=== PATIENT | male | born 1960 | race African-American/Black ===

== ENCOUNTER 2019-02-12 12:42 | Inpatient (IN) | payer MEDICARE, MEDICAID ==
[~2019-02-12] VITALS: Ht 175.3 cm; Wt 80.7 kg
[~2019-02-12 12:42] MED LIST: ASPI-1393 PO; ATOR-2 PO; DIPH25CA46 PO; LISI40TA4 PO; METO-396 PO; TICA90TA PO; TIMO5DRO32 EACHEYE
[2019-02-12 13:59] LABS: BASOPHILS % 1.4 % (0.0-2.0); EOSINOPHILS % 3.3 % (0.0-5.0); HEMATOCRIT. 34.9 % (42.0-52.0); MEAN CORPUSCULAR HEMOGLOBIN 28.7 pg (28.0-32.0); MEAN CORPUSCULAR VOLUME 90.9 fL (80.0-94.0); MEAN PLATELET VOLUME 10.1 fl (7.4-10.4); NEUTROPHILS % 72.3 % (40.0-76.0); PLATELET 210 x1000/uL (130-400); RED BLOOD CELL COUNT 3.84 mill/uL (4.7-6.1); RED CELL DISTRIBUTION WIDTH 25.2 % (11.6-14.6)
[2019-02-12 14:11] LABS: PLATELET ESTIMATE NORMAL
[2019-02-12] MEDS ORDERED: CLONIDINE 0.1MG TABLET PO PRN (20:00)
[2019-02-12] MEDS ORDERED: ONDANSETRON HCL 4MG/2ML INJ IV PRN (20:00)
[2019-02-12] MEDS ORDERED: LORAZEPAM 0.5MG TABLET PO PRN (20:00)
[2019-02-12] MEDS ORDERED: HYDROCODONE/ACETAMINOPHEN 5/325MG TABLET PO PRN (20:00)
[2019-02-12] MEDS ORDERED: ACETAMINOPHEN 325MG TABLET PO PRN (20:00)
[2019-02-12] MEDS ORDERED: IPRATROPIUM/ALBUTEROL 0.5-3(2.5)MG/3ML NEB HHN PRN (20:00)
[2019-02-12 21:36] LABS: CHLORIDE 96 mEq/L (98-107)
[2019-02-12 21:57] LABS: ETHANOL BLOOD < 10 mg/dL
[2019-02-12] MEDS: DOCUSATE SODIUM 100MG CAPSULE PO PRN (23:53)
[2019-02-13] MEDS ORDERED: AMLO10TA80 PO (00:03)
[2019-02-13] MEDS ORDERED: ISON300T19 PO (00:03)
[2019-02-13] MEDS ORDERED: CALC667C MT (00:03)
[2019-02-13] MEDS ORDERED: MELO-106 PO (00:03)
[2019-02-13 01:28] VITALS: BP 105/63
[2019-02-13 08:00] VITALS: BP 115/73
[2019-02-13] MEDS: DOCUSATE SODIUM 100MG CAPSULE PO PRN (09:41)
[2019-02-13] MEDS ORDERED: DEXTROSE 50% WATER 50ML SYRINGE IV PRN (09:45)
[2019-02-13] MEDS ORDERED: TICAGRELOR 90 MG TABLET PO NR (10:30)
[2019-02-13 12:00] VITALS: BP 128/78
[2019-02-13] MEDS: LACTULOSE 20G/30ML UDC PO SCH ×2 (12:07→17:26)
[2019-02-13] MEDS: BLOOD SUGAR DIAGNOSTIC STRIP TEST SCH ×3 (12:26→21:49)
[2019-02-13] MEDS: INSULIN LISPRO 100 UNITS/ML SUBCUT SCH ×3 (12:27→21:48)
[2019-02-13 13:11] LABS: HEPATITIS B SURFACE ANTIGEN NEGATIVE
[2019-02-13 13:40] LABS: HEPATITIS A AB IGM NEGATIVE (NEGATIVE)
[2019-02-13 16:38] VITALS: BP 117/72
[2019-02-13 20:00] VITALS: BP 121/67
[2019-02-13 20:09] LABS: T4 FREE 0.96 ng/dL (0.76-1.46)
[2019-02-13 21:32] LABS: VITAMIN B12 SERUM 907 pg/mL (211-911)
[2019-02-13] MEDS: TICAGRELOR 90 MG TABLET PO SCH (21:48)
[2019-02-14] VITALS: BP 127/60
[2019-02-14 04:00] VITALS: BP 117/51
[2019-02-14 04:09] LABS: HIV SCREEN 4G Non Reactive (Non Reactive)
[2019-02-14] MEDS: BLOOD SUGAR DIAGNOSTIC STRIP TEST SCH ×4 (07:40→21:00)
[2019-02-14 08:00] VITALS: BP 114/69
[2019-02-14] MEDS: INSULIN LISPRO 100 UNITS/ML SUBCUT SCH ×4 (08:10→21:44)
[2019-02-14] MEDS: AMLODIPINE 10MG TABLET PO SCH (09:19)
[2019-02-14] MEDS: ASPIRIN 81MG EC TABLET PO SCH (09:19)
[2019-02-14] MEDS: LACTULOSE 20G/30ML UDC PO SCH ×3 (09:19→18:14)
[2019-02-14] MEDS: TICAGRELOR 90 MG TABLET PO SCH ×2 (09:19→21:44)
[2019-02-14] MEDS: INSULIN GLARGINE UD 100 UNITS/ML SYR SUBCUT SCH (10:00)
[2019-02-14 12:00] VITALS: BP 117/77
[2019-02-14 15:28] LABS: BASOPHILS % 0.4 % (0.0-2.0); EOSINOPHILS % 3.3 % (0.0-5.0); HEMATOCRIT. 30.5 % (42.0-52.0); HEMOGLOBIN. 9.5 g/dL (14.0-18.0); MEAN CORPUSCULAR HEMOGLOBIN 28.2 pg (28.0-32.0); MEAN CORPUSCULAR VOLUME 89.9 fL (80.0-94.0); MEAN PLATELET VOLUME 9.7 fl (7.4-10.4); MONOCYTES % 7.4 % (2.0-8.0); NEUTROPHILS % 77.9 % (40.0-76.0); PLATELET 187 x1000/uL (130-400); RED BLOOD CELL COUNT 3.39 mill/uL (4.7-6.1); RED CELL DISTRIBUTION WIDTH 24.2 % (11.6-14.6)
[2019-02-14 15:52] LABS: PHOSPHORUS 8.5 mg/dL (2.5-4.9)
[2019-02-14 16:00] VITALS: BP 122/94
[2019-02-14 20:00] VITALS: BP 102/68
[2019-02-15] VITALS: BP 99/64
[2019-02-15 04:00] VITALS: BP 119/76
[2019-02-15] MEDS: BLOOD SUGAR DIAGNOSTIC STRIP TEST SCH ×2 (06:48→13:10)
[2019-02-15 08:00] VITALS: BP 115/78
[2019-02-15] MEDS: AMLODIPINE 10MG TABLET PO SCH (09:00)
[2019-02-15] MEDS: ASPIRIN 81MG EC TABLET PO SCH (09:33)
[2019-02-15] MEDS: LACTULOSE 20G/30ML UDC PO SCH (09:33)
[2019-02-15] MEDS: TICAGRELOR 90 MG TABLET PO SCH (09:33)
[2019-02-15] MEDS: INSULIN LISPRO 100 UNITS/ML SUBCUT SCH ×2 (09:33→13:34)
[2019-02-15] MEDS: INSULIN GLARGINE UD 100 UNITS/ML SYR SUBCUT SCH (10:00)
[2019-02-15 12:00] VITALS: BP 115/78
[2019-02-15] MEDS ORDERED: TUSSL MT (13:10)
[2019-02-15] MEDS ORDERED: INSULIN LISPRO 100 UNITS/ML SUBCUT SCH (13:15)
[2019-02-15] MEDS ORDERED: LEVO500T2 MT (14:26)
[2019-02-15 15:28] VITALS: BP 115/78
[2019-02-15] MEDS ORDERED: LEVOFLOXACIN 500MG PREMIX 100 ML IV NR (16:00)
[2019-02-17 13:06] LABS: BARBITURATE SCREEN Negative ug/mL (Cutoff:0.1); BENZODIAZEPINE SCREEN Negative ng/mL (Cutoff:20); OPIATES SCREEN Negative ng/mL (Cutoff:5); PHENCYCLIDINE SCREEN Negative ng/mL (Cutoff:8)
[2019-02-17] MEDS ORDERED: LEVOFLOXACIN 250MG PREMIX 50 ML IV SCH (16:00)
== END 2019-02-15 16:39 | disposition home or self-care (01) | DRG 91 ==
LOC: ER 12:42 → 7WST 19:24 → EDBEDREQ 20:04 → CANRESERV 21:04 → ENRESERV 21:04
PROVIDERS: ADMIT Internal Medicine; ATTEND Internal Medicine
PROC: 5A1D70Z Performance of Urinary Filtration, Intermittent, Less than 6 Hours Per Day (ICD-10-PCS; principal; 2019-02-13)
DX: G92 Toxic encephalopathy (principal); N18.6 End stage renal disease; E87.1 Hypo-osmolality and hyponatremia; I42.9 Cardiomyopathy, unspecified; I13.2 Hypertensive heart and chronic kidney disease with heart failure and with stage 5 chronic kidney disease, or end stage renal disease; I50.22 Chronic systolic (congestive) heart failure; E72.20 Disorder of urea cycle metabolism, unspecified; N25.81 Secondary hyperparathyroidism of renal origin; D64.9 Anemia, unspecified; E11.22 Type 2 diabetes mellitus with diabetic chronic kidney disease; R74.0 Nonspecific elevation of levels of transaminase and lactic acid dehydrogenase [LDH]; E11.65 Type 2 diabetes mellitus with hyperglycemia; I25.10 Atherosclerotic heart disease of native coronary artery without angina pectoris; I25.2 Old myocardial infarction; Z86.73 Personal history of transient ischemic attack (TIA), and cerebral infarction without residual deficits; Z99.2 Dependence on renal dialysis; Z79.02 Long term (current) use of antithrombotics/antiplatelets; Z79.84 Long term (current) use of oral hypoglycemic drugs; Z79.899 Other long term (current) drug therapy; Z82.49 Family history of ischemic heart disease and other diseases of the circulatory system; Z83.3 Family history of diabetes mellitus; Z86.15 Personal history of latent tuberculosis infection; Z95.5 Presence of coronary angioplasty implant and graft; Z79.82 Long term (current) use of aspirin
CPT/HCPCS: 36415; 70551; 71045; 76700; 80048; 80061; 80076; 80307; 80320; 82140; 82248; 82607; 82746; 82962; 83036; 83735; 84100; 84145; 84439; 84443; 84481; 86705; 86709; 86803; 87340; 87389; 93005; 93306; 99285; J1815; J1956; J7620; G0480; J8499